=== PATIENT | female | born 1995 | race Two or more races ===

== ENCOUNTER 2022-04-16 11:05 | Inpatient (IN) | payer BC, OTHER ==
[~2022-04-16] VITALS: Ht 157.5 cm; Wt 61.7 kg
[2022-04-16] MEDS ORDERED: DERMOPLAST 60ML BOTTLE TOP PRN (11:30)
[2022-04-16] MEDS ORDERED: PHISODERM TOP SOLN 240ML BTL TOP PRN (11:30)
[2022-04-16] MEDS ORDERED: WITCH HAZEL-GLYCERIN PAD TOP PRN (11:30)
[2022-04-16] MEDS ORDERED: LACTATED RINGER'S 1,000 ML IV SCH (11:30)
[2022-04-16] MEDS ORDERED: PROMETHAZINE HCL 25 MG/ML 1ML IV PRN (11:30)
[2022-04-16] MEDS ORDERED: ACETAMINOPHEN 325 MG TAB PO PRN (11:45)
[2022-04-16] MEDS ORDERED: IBUPROFEN 600 MG TAB PO PRN (11:45)
[2022-04-16] MEDS ORDERED: ONDANSETRON ODT 4 MG TAB PO PRN (11:45)
[2022-04-16 12:47] LABS: Basophils # (auto) 0.1 10 ^3/uL (0-0.2); Basophils % (auto) 0.3 % (0.0-2.0); Eosinophils # (auto) 0 10 ^3/uL (0-0.8); Eosinophils % (auto) 0.2 % (0.0-7.0); Hematocrit 41.1 % (36.0-46.0); Hemoglobin 14.3 g/dL (12.2-16.2); Lymphocytes % (auto) 12.2 % (10.0-50.0); Mean Corpuscular Hemoglobin 31.2 pg (28.0-32.0); Mean Corpuscular Hgb Conc. 34.7 g/dL (32.0-36.0); Mean Corpuscular Volume 89.9 fL (80.0-100.0); Neutrophils # (auto) 13.3 10 ^3/uL (1.6-8.6); Neutrophils % (auto) 81.3 % (37.0-80.0); Nucleated Red Blood Cells % 0.3 %; Red Blood Cells 4.57 10^6/uL (4.0-5.20); Red Cell Distribution Width 12.7 % (11.8-14.3); White Blood Cell 16.4 10^3/uL (4.4-10.8)
[2022-04-16 13:09] LABS: Albumin 3.1 g/dL (3.4-5.0); Calcium 8.8 mg/dL (8.5-10.1); Potassium 3.6 mmol/L (3.5-5.1)
[2022-04-16 13:13] LABS: Bilirubin, Total 0.2 mg/dL (0.2-1.0); Total Protein 6.8 g/dL (6.4-8.2)
[2022-04-16 13:18] LABS: INR 0.92 (0.9-1.15); Partial Thromboplastin Time 27.1 sec (24.6-33.4)
[2022-04-16 15:00] VITALS: BP 133/78
[2022-04-16 15:13] LABS: Urine Bacteria NONE SEEN /hpf (None Seen); Urine Blood 3+ /uL (Negative); Urine WBC 2019 /hpf (0 - 5)
[2022-04-16 15:14] LABS: Alcohol, Urine < 3.0 mg/dL (0-10); Amphetamine Screen, Urine NEGATIVE (NEGATIVE); Barbiturate Scree,Urine NEGATIVE (NEGATIVE); Benzodiazephine Screen, Urine NEGATIVE (NEGATIVE); Cannabinoid Screen, Urine NEGATIVE (NEGATIVE); Cocaine Screen, Urine NEGATIVE (NEGATIVE); Opiate Scree,Urine NEGATIVE (NEGATIVE); Phencyclidine Screen, Urine NEGATIVE (NEGATIVE)
[2022-04-16 15:15] LABS: Urine Specific Gravity 1.015 (1.001-1.035)
[2022-04-16 18:47] VITALS: BP 110/71
[2022-04-16] MEDS ORDERED: PREN-96 PO (20:16)
[2022-04-17 00:43] VITALS: BP 145/89
[2022-04-17 03:10] VITALS: BP 135/86
[2022-04-17 06:50] VITALS: BP 116/79
[2022-04-17 11:03] VITALS: BP 125/87
[2022-04-17 11:39] VITALS: BP 125/87
[2022-04-18 07:06] LABS: RPR Non Reactive (Non Reactive)
== END 2022-04-17 11:39 | disposition home or self-care (01) | DRG 807 ==
LOC: LDRP 11:05
PROVIDERS: ADMIT Obstetrics & Gynecology; ATTEND Obstetrics & Gynecology
PROC: 10E0XZZ Delivery of Products of Conception, External Approach (ICD-10-PCS; principal; 2022-04-16)
DX: O03.9 Complete or unspecified spontaneous abortion without complication (principal); Z37.1 Single stillbirth; Z20.822 Contact with and (suspected) exposure to COVID-19; Z3A.21 21 weeks gestation of pregnancy
CPT/HCPCS: 36415; 59414; 80053; 80307; 81001; 85025; 85610; 85730; 86592; 86850; 86900; 86901; 87040; 87426; 94760; G0378

== ENCOUNTER 2024-08-26 10:18 | Observation (INO) | payer BC ==
[~2024-08-26 10:18] MED LIST: PREN-96 PO
--- NOTE | 2024-08-26 11:29 | DVHDS2 ---
Physician Discharge Progress N Final Diagnosis: ,short cxptl Operations or Procedures: Operations or Procedures nst, Commentary: Commentary seen by me Condition on Discharge: Good Disposition: Home Discharge Instructions: Diet: Regular Activity: Light activity Follow Up/Referral: Follow up in birthplace SundaySeptember 02 at 9:00 am for NST. Medications: procardia Follow Up Care: Specialist: 1w Discharge Statement: "Patient was advised to return to the ER or call 911 if any headaches, dizziness, shortness of breath, chest pain, abdominal pain, bleeding, fevers, or worsening of medical condition. Patient was counseled about treatment plan, medications, possible side effects, patientverbalized understanding. All questions were answered to the best of my ability. This discharge took greater then 30 minutes in planning, reviewing documentation, counseling the patient, and discussing with other team members." Visit Coding OBGYN Date of Service: Aug 26, 2024 Billing Provider: FRIDA VAIL DO SUPERVISING APPRAISER Common Visit Codes: 71258-[facility] INP/OBS CARE (HIGH) SUPERVISING APPRAISER Consultation Codes: 86261-[id number] CONSULT <40MIN SUPERVISING APPRAISER Procedure Codes: 27614-21- NON-STRESS TEST FRIDA VAIL DO Aug 26, 2024 11:29
== END 2024-08-26 11:10 | disposition home or self-care (01) ==
LOC: LDRP 10:18
PROVIDERS: ADMIT Obstetrics & Gynecology; ATTEND Obstetrics & Gynecology
DX: O26.872 Cervical shortening, second trimester (principal); Z98.890 Other specified postprocedural states; Z79.899 Other long term (current) drug therapy; Z3A.27 27 weeks gestation of pregnancy
CPT/HCPCS: 59025; 81002; 94760; G0378

== ENCOUNTER 2024-09-02 08:58 | Observation (INO) | payer BC ==
[~2024-09-02] VITALS: Ht 157.5 cm; Wt 63.5 kg
[2024-09-02] MEDS ORDERED: NIFE10CA52 PO (10:10)
[2024-09-02] MEDS ORDERED: PROG100S VA (10:10)
[2024-09-02] MEDS: TERBUTALINE SULFATE 1 MG/ML 1ML VIAL SC SCH (10:43)
[2024-09-02] MEDS: BETAMETHASONE ACET (30mg/5ml) 5ml Vial 6mg/ml IM ONE (10:43)
--- NOTE | 2024-09-02 11:36 | DVH ---
LIMITED OB ULTRASOUND > 14 WKS: HISTORY: short cervix/ PTL/ hx of pre term delivery TECHNIQUE: Multiple real-time grayscale images of the gravid uterus with duplex Doppler color flow an d M-mode spectral analysis. TRANSDUCER: Transabdominal COMPARISON: None FINDINGS/IMPRESSION: Cephalic presentation. Anterior placenta. heart rate 138 beats per minute CIRILO 17.7 cm Cervix measures 3.4 cm and is closed.
--- NOTE | 2024-09-02 13:49 | DVHDS2 ---
Physician Discharge Progress N Final Diagnosis: testing for short cervix Operations or Procedures: Operations or Procedures 28yo IUP@28.6wks, taking procardia 10mg PO q8hrs, denies UCs/VB, last CVL sono was in office 1 week ago cannot remember the number. VSS NST reactive TOCO: UCs presents, terb SQx1 and betamethasone IM first dose given, no UCs prior to D/C Rx sent for progesterone 200mg vag supp qHS and procardia 10mg PO q6hrs f/u in 1 day for second dose of betamethasone IM Dr. Alves consulted, agrees with POC Condition on Discharge: Stable Disposition: Home Discharge Instructions: Diet: Regular Activity: See Comment Activity comment: Pelvic Rest Follow Up/Referral: Please follow up tomorrow 09/03/24 @0900 for second dose of celestone, and/or return to [facility] or nearest hospital for any further concerns/complaints. Keep all scheduled appointments and continue all prescription medications exactly as prescribed. Medications: see med list Follow Up Care: Specialist: f/u in 1 day for second dose of betamethasone IM Discharge Statement: "Patient was advised to return to the ER or call 911 if any headaches, dizziness, shortness of breath, chest pain, abdominal pain, bleeding, fevers, or worsening of medical condition. Patient was counseled about treatment plan, medications, possible side effects, patientverbalized understanding. All questions were answered to the best of my ability. This discharge took greater then 30 minutes in planning, reviewing documentation, counseling the patient, and discussing with other team members." Visit Coding OBGYN Date of Service: Sep 02, 2024 Billing Provider: FREDERICK CHOU CNM CRANE RIGGER Common Visit Codes: 29169-VRLEVYT OBS CARE (HIGH) CRANE RIGGER Procedure Codes: 18835-37- NON-STRESS TEST FREDERICK CHOU CNM Sep 02, 2024 13:49
[2024-09-02] MEDS ORDERED: PROG100C23 PO (21:21)
== END 2024-09-02 11:36 | disposition home or self-care (01) ==
LOC: LDRP 08:58
PROVIDERS: ADMIT Obstetrics & Gynecology; ATTEND Obstetrics & Gynecology
DX: O26.872 Cervical shortening, second trimester (principal); O99.322 Drug use complicating pregnancy, second trimester; F12.90 Cannabis use, unspecified, uncomplicated; Z3A.28 28 weeks gestation of pregnancy; Z87.891 Personal history of nicotine dependence; Z79.899 Other long term (current) drug therapy
CPT/HCPCS: 76815; 81002; 94760; 96372; G0378; J0702; J3105

== ENCOUNTER 2024-09-03 06:06 | Observation (INO) | payer BC ==
[~2024-09-03] VITALS: Ht 157.5 cm; Wt 64.0 kg
[~2024-09-03 06:06] MED LIST changes: +NIFE10CA52 PO; +PROG100C23 PO
[2024-09-03] MEDS: BETAMETHASONE ACET (30mg/5ml) 5ml Vial 6mg/ml IM ONE (09:46)
--- NOTE | 2024-09-03 12:40 | DVHDS2 ---
Physician Discharge Progress N Final Diagnosis: ptl,short cx 29wks Operations or Procedures: Operations or Procedures nst,sono Condition on Discharge: Good Disposition: Home Discharge Instructions: Diet: Regular Activity: No Restrictions, As Tolerated Medications: na Follow Up Care: Specialist: 1w Discharge Statement: "Patient was advised to return to the ER or call 911 if any headaches, dizziness, shortness of breath, chest pain, abdominal pain, bleeding, fevers, or worsening of medical condition. Patient was counseled about treatment plan, medications, possible side effects, patientverbalized understanding. All questions were answered to the best of my ability. This discharge took greater then 30 minutes in planning, reviewing documentation, counseling the patient, and discussing with other team members." Visit Coding OBGYN Date of Service: Sep 03, 2024 Billing Provider: FRIDA VAIL DO CLIENT ACCOUNT MANAGER Common Visit Codes: [id number]-[id number] INP/OBS CARE (HIGH) CLIENT ACCOUNT MANAGER Procedure Codes: 31111-91- NON-STRESS TEST FRIDA VAIL DO Sep 03, 2024 12:40
== END 2024-09-03 10:06 | disposition home or self-care (01) ==
LOC: LDRP 09:03
PROVIDERS: ADMIT Obstetrics & Gynecology; ATTEND Obstetrics & Gynecology
DX: O60.03 Preterm labor without delivery, third trimester (principal); O26.873 Cervical shortening, third trimester; Z3A.29 29 weeks gestation of pregnancy; Z79.899 Other long term (current) drug therapy
CPT/HCPCS: 81002; 94760; 96372; G0378

== ENCOUNTER 2024-09-09 06:30 | Observation (INO) | payer BC ==
--- NOTE | 2024-09-09 15:44 | DVHDS2 ---
Physician Discharge Progress N Final Diagnosis: History of short cervix and prior labor Operations or Procedures: Operations or Procedures NST Condition on Discharge: Stable Disposition: Home Discharge Instructions: Diet: Regular Activity: Light activity Follow Up/Referral: as scheduled Medications: N/A Follow Up Care: Discharge Statement: "Patient was advised to return to the ER or call 911 if any headaches, dizziness, shortness of breath, chest pain, abdominal pain, bleeding, fevers, or worsening of medical condition. Patient was counseled about treatment plan, medications, possible side effects, patientverbalized understanding. All questions were answered to the best of my ability. This discharge took greater then 30 minutes in planning, reviewing documentation, counseling the patient, and discussing with other team members." Visit Coding OBGYN Date of Service: Sep 09, 2024 Billing Provider: JANY RUIZ DO HOT WIRE GLASS TUBE CUTTER Common Visit Codes: 68812-EUI/OBS SAME DATE (MOD) HOT WIRE GLASS TUBE CUTTER Procedure Codes: 64877-06- NON-STRESS TEST JANY RUIZ DO Sep 09, 2024 15:43
== END 2024-09-09 11:48 | disposition home or self-care (01) ==
LOC: LDRP 09:57
PROVIDERS: ADMIT Obstetrics & Gynecology; ATTEND Obstetrics & Gynecology
DX: O26.873 Cervical shortening, third trimester (principal); O60.03 Preterm labor without delivery, third trimester; Z98.890 Other specified postprocedural states; Z79.899 Other long term (current) drug therapy; Z3A.29 29 weeks gestation of pregnancy
CPT/HCPCS: 59025; 81002; 94760; G0378

== ENCOUNTER 2024-09-16 06:54 | Observation (INO) | payer BC ==
--- NOTE | 2024-09-16 09:02 | DVH ---
LIMITED OB ULTRASOUND > 14 WKS: HISTORY: SHORT CERVIX/ PTL TECHNIQUE: Multiple real-time grayscale images of the gravid uterus with duplex Doppler color flow an d M-mode spectral analysis. TRANSDUCER: Transabdominal COMPARISON: US OBSTERICAL LIMITED on DOS: 09/02/24 FINDINGS/IMPRESSION: heart rate 130 beats per minute CIRILO 14.4 cm Cervix is not visualized Cephalic Presentation Anterior Placenta without previa or abruption.
--- NOTE | 2024-09-16 09:21 | DVHDS2 ---
Physician Discharge Progress N Final Diagnosis: testing for PTL/short cervix Operations or Procedures: Operations or Procedures 28yo IUP@30.6wks, +FM, denies UCs/LOF/VB, taking progesterone/procardia/PNV OB sono done NST reactive VSS FKC/PTL precautions reviewed. Dr. Alves consulted, agrees with POC. Condition on Discharge: Stable Disposition: Home Discharge Instructions: Diet: Regular Activity: No Restrictions, As Tolerated Medications: see med list Follow Up Care: Specialist: f/u in 1 wk Discharge Statement: "Patient was advised to return to the ER or call 911 if any headaches, dizziness, shortness of breath, chest pain, abdominal pain, bleeding, fevers, or worsening of medical condition. Patient was counseled about treatment plan, medications, possible side effects, patientverbalized understanding. All questions were answered to the best of my ability. This discharge took greater then 30 minutes in planning, reviewing documentation, counseling the patient, and discussing with other team members." Visit Coding OBGYN Date of Service: Sep 16, 2024 Billing Provider: FREDERICK CHOU CNM BIODIESEL DIVISION MANAGER Common Visit Codes: 76214-[id number] OBS CARE (HIGH) BIODIESEL DIVISION MANAGER Procedure Codes: 10194-35- NON-STRESS TEST FREDERICK CHOU CNM Sep 16, 2024 09:21
== END 2024-09-16 09:40 | disposition home or self-care (01) ==
LOC: LDRP 08:00
PROVIDERS: ADMIT Obstetrics & Gynecology; ATTEND Obstetrics & Gynecology
DX: O26.873 Cervical shortening, third trimester (principal); Z98.890 Other specified postprocedural states; Z79.899 Other long term (current) drug therapy; Z3A.30 30 weeks gestation of pregnancy
CPT/HCPCS: 76815; 81002; G0378

== ENCOUNTER 2024-09-23 07:13 | Observation (INO) | payer BC ==
[~2024-09-23] VITALS: Ht 157.5 cm; Wt 54.4 kg
--- NOTE | 2024-09-23 08:52 | DVH ---
LIMITED OB ULTRASOUND > 14 WKS: HISTORY: short cervix TECHNIQUE: Multiple real-time grayscale images of the gravid uterus with duplex Doppler color flow an d M-mode spectral analysis. FINDINGS: Cephalic presentation Current CIRILO: 17.5 HR: 137 BPM IMPRESSION: Cephalic presentation Current CIRILO: 17.5 HR: 137 BPM
[2024-09-23] MEDS: NIFEdipine 10 MG CAP PO ONE (09:03)
[2024-09-23] MEDS: TERBUTALINE SULFATE 1 MG/ML 1ML VIAL SC SCH (09:04)
--- NOTE | 2024-09-23 13:40 | DVHDS2 ---
Physician Discharge Progress N Final Diagnosis: testing for short cervix/PTL Operations or Procedures: Operations or Procedures 28yo IUP@31.6wks, taking procardia 10mg q6hrs, denies UCs VSS NST reactive TOCO: initially regular UCs after treatment none Terbutaline SQ x1 given FKC/PTL precautions reviewed Continue pelvic rest Take procardia 10mg q4hrs now until [address] Alves consulted, agrees with POC Other Interventions Other Interventions [place] [address] Ph: [phone] DIAGNOSTIC IMAGING Diagnostic Imaging Report : [id number] Signed with Samuel PATIENT: EVAN BARNES ACCT: [id number] UNIT: [id number] : 1995 LOC: [facility] ROOM / BED: TRIAGE1 / A AGE / SEX: 28 / F ADM STATUS: ADM IN SERVICE 0 ORDERING PHYSICIAN: FRIDA ALVES DO PROCEDURE(s): OBLTD - OBSTERICAL LIMITED REASON: short cervix ORDER NUMBER(s): [id number], ACCESSION NUMBER(s): [id number] ADDENDUM ADDENDUM # 1 Cervical length is short measruing 2.7cm ORIGINAL REPORT LIMITED OB ULTRASOUND > 14 WKS: HISTORY: short cervix TECHNIQUE: Multiple real-time grayscale images of the gravid uterus with duplex Doppler color flow and M-mode spectral analysis. FINDINGS: Cephalic presentation Current CIRILO: 17.5 HR: 137 BPM IMPRESSION: Cephalic presentation Current CIRILO: 17.5 HR: 137 BPM ATED BY: KHRIS QUINTANA MD DICTATED DATE/TIME: 09/23/24858 SIGNED BY: KHRIS QUINTANA MD SIGNED DATE/TIME: 09/23/24858 CC: ADDENDUM ADDENDUM # 1 Cervical length is short measruing 2.7cm ORIGINAL REPORT LIMITED OB ULTRASOUND > 14 WKS: HISTORY: short cervix TECHNIQUE: Multiple real-time grayscale images of the gravid uterus with duplex Doppler color flow and M-mode spectral analysis. FINDINGS: Cephalic presentation Current CIRILO: 17.5 HR: 137 BPM IMPRESSION: Cephalic presentation Current CIRILO: 17.5 HR: 137 BPM ATED BY: KHRIS QUINTANA MD DICTATED DATE/TIME: 09/23/24858 SIGNED BY: KHRIS QUINTANA MD SIGNED DATE/TIME: 09/23/24858 CC: LIMITED OB ULTRASOUND > 14 WKS: HISTORY: short cervix TECHNIQUE: Multiple real-time grayscale images of the gravid uterus with duplex Doppler color flow and M-mode spectral analysis. FINDINGS: Cephalic presentation Current CIRILO: 17.5 HR: 137 BPM IMPRESSION: Cephalic presentation Current CIRILO: 17.5 HR: 137 BPM ATED BY: KHRIS QUINTANA MD DICTATED DATE/TIME: 09/23/24849 SIGNED BY: KHRIS QUINTANA MD SIGNED DATE/TIME: 09/23/24849 CC: Condition on Discharge: Stable Disposition: Home Discharge Instructions: Diet: Regular Activity: See Comment Activity comment: pelvic rest Medications: see med list Follow Up Care: Specialist: f/u in 1 wk Discharge Statement: "Patient was advised to return to the ER or call 911 if any headaches, dizziness, shortness of breath, chest pain, abdominal pain, bleeding, fevers, or worsening of medical condition. Patient was counseled about treatment plan, medications, possible side effects, patientverbalized understanding. All questions were answered to the best of my ability. This discharge took greater then 30 minutes in planning, reviewing documentation, counseling the patient, and discussing with other team members." Visit Coding OBGYN Date of Service: Sep 23, 2024 Billing Provider: FREDERICK CHOU CNM JOB PUTTER UP AND TICKET PREPARER Common Visit Codes: 87733-[id number] OBS CARE (HIGH) JOB PUTTER UP AND TICKET PREPARER Procedure Codes: 58664-87- NON-STRESS TEST FREDERICK CHOU CNM Sep 23, 2024 13:40
== END 2024-09-23 10:08 | disposition home or self-care (01) ==
LOC: LDRP 07:57
PROVIDERS: ADMIT Obstetrics & Gynecology; ATTEND Obstetrics & Gynecology
DX: O26.873 Cervical shortening, third trimester (principal); O60.03 Preterm labor without delivery, third trimester; Z98.890 Other specified postprocedural states; Z79.899 Other long term (current) drug therapy; Z3A.31 31 weeks gestation of pregnancy
CPT/HCPCS: 59025; 76815; 81002; 94760; 96372; G0378; J3105

== ENCOUNTER 2024-09-30 07:56 | Observation (INO) | payer BC ==
[~2024-09-30] VITALS: Ht 157.5 cm; Wt 51.3 kg
--- NOTE | 2024-09-30 08:44 | DVH ---
BIOPHYSICAL PROFILE HISTORY: PTL/short cervix Comparison Study: None TECHNIQUE: Multiple real-time grayscale sonographic images through the gravid uterus of the fetus wi th duplex Doppler color flow and M-mode spectral analysis FINDINGS: BIOPHYSICAL PROFILE: breathing score: 2 movement score: 2 tone score: 2 Quantitative CIRILO score: 2 (CIRILO: 16.5 Cm.) Total score: 8 The cervix is shortened and demonstrates funneling measuring 2.6 cm. Single live fetus in cephalic presentation. heart rate 138 beats per minute. Anterior placenta without previa or abruption IMPRESSION: Biophysical profile score: 8 The cervix is shortened and demonstrates funneling measuring 2.6 cm.
--- NOTE | 2024-09-30 09:33 | DVHDS2 ---
Physician Discharge Progress N Final Diagnosis: ptl ,short cx 32 wks Operations or Procedures: Operations or Procedures rec 2 celestone Consultations: Consultations nstcandidowendy Condition on Discharge: Good Disposition: Home Discharge Instructions: Diet: Regular Activity: Light activity Medications: na Follow Up Care: Specialist: 1w Discharge Statement: "Patient was advised to return to the ER or call 911 if any headaches, dizziness, shortness of breath, chest pain, abdominal pain, bleeding, fevers, or worsening of medical condition. Patient was counseled about treatment plan, medications, possible side effects, patientverbalized understanding. All questions were answered to the best of my ability. This discharge took greater then 30 minutes in planning, reviewing documentation, counseling the patient, and discussing with other team members." Visit Coding OBGYN Date of Service: Sep 30, 2024 Billing Provider: FRIDA VAIL DO SUSTAINABILITY PURCHASING AGENT Common Visit Codes: 62030-ZEUYQUJ INP/OBS CARE (HIGH) SUSTAINABILITY PURCHASING AGENT Procedure Codes: 71492-23- NON-STRESS TEST FRIDA VAIL DO Sep 30, 2024 09:33
== END 2024-09-30 09:14 | disposition home or self-care (01) ==
LOC: LDRP 07:56 → UNDOADMOB 07:56 → LDRP 08:01
PROVIDERS: ADMIT Obstetrics & Gynecology; ATTEND Obstetrics & Gynecology
DX: O60.03 Preterm labor without delivery, third trimester (principal); O26.873 Cervical shortening, third trimester; Z3A.32 32 weeks gestation of pregnancy; Z98.890 Other specified postprocedural states; Z79.899 Other long term (current) drug therapy
CPT/HCPCS: 76818; 81002; 94760; G0378; 76819

== ENCOUNTER 2024-10-06 07:52 | Observation (INO) | payer BC ==
[~2024-10-06] VITALS: Ht 157.5 cm; Wt 68.0 kg
[2024-10-06] MEDS ORDERED: TERBUTALINE SULFATE 1 MG/ML 1ML VIAL SC SCH (09:00)
[2024-10-06] MEDS ORDERED: TERBUTALINE SULFATE 1 MG/ML 1ML VIAL SC ONE (09:00)
--- NOTE | 2024-10-06 09:12 | DVH ---
BIOPHYSICAL PROFILE HISTORY: short cervix, PTL TECHNIQUE: Multiple transabdominal real-time grayscale sonographic images through the gravid uterus of the fetus with duplex Doppler color flow and M-mode spectral analysis FINDINGS: BIOPHYSICAL PROFILE: breathing score: 2 movement score: 2 tone score: 2 Quantitative CIRILO score: 2 (CIRILO: 13.2 Cm.) Total score: 8 The cervix is closed 1.8 cm. Single live fetus in cephalic presentation. heart rate 119 beats per minute. Grade III anterior placenta without previa or abruption IMPRESSION: Biophysical profile score: 8/8
--- NOTE | 2024-10-06 11:29 | DVHDS2 ---
Physician Discharge Progress N Final Diagnosis: ptl Operations or Procedures: Operations or Procedures nst,sono Condition on Discharge: Good Disposition: Home Discharge Instructions: Diet: Regular Activity: Bed rest Follow Up/Referral: Follow up Sunday10/13/24 @ 8:00 am for NST/BPP in [facility]place Medications: na Follow Up Care: Specialist: 1w Discharge Statement: "Patient was advised to return to the ER or call 911 if any headaches, dizziness, shortness of breath, chest pain, abdominal pain, bleeding, fevers, or worsening of medical condition. Patient was counseled about treatment plan, medications, possible side effects, patientverbalized understanding. All questions were answered to the best of my ability. This discharge took greater then 30 minutes in planning, reviewing documentation, counseling the patient, and discussing with other team members." Visit Coding OBGYN Date of Service: Oct 06, 2024 Billing Provider: FRIDA VAIL DO SALES ENABLEMENT ANALYST Common Visit Codes: 66153-VMRJKBG OBS CARE (HIGH) SALES ENABLEMENT ANALYST Procedure Codes: 17164-06- NON-STRESS TEST FRIDA VAIL DO Oct 06, 2024 11:29
== END 2024-10-06 09:30 | disposition home or self-care (01) ==
LOC: LDRP 07:52
PROVIDERS: ADMIT Obstetrics & Gynecology; ATTEND Obstetrics & Gynecology
DX: O60.03 Preterm labor without delivery, third trimester (principal); Z98.890 Other specified postprocedural states; Z79.899 Other long term (current) drug therapy; Z3A.33 33 weeks gestation of pregnancy
CPT/HCPCS: 76817; 76818; 81002; 94760; G0378; J3105; 76819

== ENCOUNTER 2024-10-13 06:34 | Observation (INO) | payer BC ==
--- NOTE | 2024-10-13 09:02 | DVH ---
CLINICAL HISTORY: labor. Short cervix. COMPARISON: US BIOPHYSICAL PROFILE on DOS: 10/06/24, US BIOPHYSICAL PROFILE on DOS: 09/30/24 TECHNIQUE: biophysical profile was performed. Transabdominal sonographic images of the fetus we re obtained. Transvaginal imaging was performed to evaluate the cervix. FINDINGS: The fetus is in cephalic position. heart rate measures 122 BPM. Amniotic fluid index measures 15.3 cm. The placenta is anterior in position, with no evidence of previa or abruption. Cerv ix appears closed. Cervical length was measured as 2.3 cm. BPP profile is an overall score of 8/8, with 2/2 points for breathing, with at least one episode of breathing over a 30 second duration during a 30 minute observation, 2/2 points for m ovements, with 3 or more discrete body or limb movements, 2/2 points for tone, with one or more episodes of extremity extension with return to flexion, or opening and closing of hand, and 2/ 2 points for amniotic fluid, with at least 1 pocket of amniotic fluid that measures 2 cm in 2 perpend icular planes. IMPRESSION: 1. BPP score of 8/8. 2. Cervical length measured as 2.3 cm. Cervix appears closed.
--- NOTE | 2024-10-13 23:04 | DVHDS2 ---
Discharge Summary Date of Admission Oct 13, 2024 at 07:57 Date of Discharge: Oct 13, 2024 Admitting Diagnosis PTL 34 wks Brief Hx & Hospital Course: NST US Condition at Discharge: Good Final Diagnosis/Problems List same Discharge Disposition: Home Discharge Instruct/Medications Diet: Regular Activity: Light activity Follow Up/Referral: as scheduled kick counts labor precautions Discharge Statement: "Patient was advised to return to the ER or call 911 if any headaches, dizziness , shortness of breath, chest pain, abdominal pain, bleeding, fevers, or worsening of medical condition. Patient was counseled about treatment plan, medications, possible side effects, patientverbalized understanding. All questions were answered to the best of my ability. This discharge took greater then 30 minutes in planning, reviewing documentation, counseling the patient, and discussing with other team members." ASSESSMENT ASSESSMENT Assessment Visit Coding OBGYN Date of Service: Oct 13, 2024 Billing Provider: DELPHINE HERNDON DO FINAL CLEANER Common Visit Codes: 47418-DMP/OBS SAME DATE (LOW), 97690-KZS/OBS SAME DATE (MOD), 77491-EIG/OBS SAME DATE (HIGH) FINAL CLEANER Procedure Codes: 33895-88- NON-STRESS TEST DELPHINE HERNDON DO Oct 13, 2024 23:04
== END 2024-10-13 09:15 | disposition home or self-care (01) ==
LOC: LDRP 07:57
PROVIDERS: ADMIT Obstetrics & Gynecology; ATTEND Obstetrics & Gynecology
DX: O60.03 Preterm labor without delivery, third trimester (principal); Z98.890 Other specified postprocedural states; Z79.899 Other long term (current) drug therapy; Z3A.34 34 weeks gestation of pregnancy
CPT/HCPCS: 76818; 81002; G0378; 76819

== ENCOUNTER 2024-10-18 16:35 | Inpatient (IN) | payer BC ==
[2024-10-17 18:45] VITALS: BP 153/90; PULSE 81; RESP 16; O2SAT 98
[2024-10-18] VITALS (7 sets, daily range): BP systolic 121–143; BP diastolic 71–89; PULSE 71–83; RESP 15–16; TEMP 98.4–98.9; O2SAT 96–98
[~2024-10-18] VITALS: Ht 157.5 cm; Wt 68.5 kg
[2024-10-18] MEDS ORDERED: LIDOCAINE 2%HCL (LOCAL ANESTH.) INJ 20ML MDV ONE (17:06)
[2024-10-18] MEDS ORDERED: LIDOCAINE 2%HCL (LOCAL ANESTH.) INJ 20ML MDV IJ PRN (17:15)
[2024-10-18] MEDS ORDERED: LACTATED RINGER'S 1,000 ML IV SCH (17:15)
[2024-10-18 17:49] LABS: Urine Bacteria None Seen /hpf (None Seen)
[2024-10-18 17:56] LABS: Basophils # (auto) 0.1 10 ^3/uL (0-0.2); Basophils % (auto) 0.4 % (0.0-2.0); Eosinophils # (auto) 0 10 ^3/uL (0-0.8); Eosinophils % (auto) 0.4 % (0.0-7.0); Hematocrit 40.1 % (36.0-46.0); Hemoglobin 13.9 g/dL (12.2-16.2); Lymphocytes # (auto) 1.5 10 ^3/uL (0.4-5.4); Lymphocytes % (auto) 11.9 % (10.0-50.0); Mean Corpuscular Hemoglobin 32.3 pg (28.0-32.0); Mean Corpuscular Hgb Conc. 34.8 g/dL (32.0-36.0); Mean Corpuscular Volume 92.8 fL (80.0-100.0); Monocytes # (auto) 0.6 10 ^3/uL (0-1.3); Monocytes % (auto) 4.6 % (0.0-12.0); Neutrophils # (auto) 10.4 10 ^3/uL (1.6-8.6); Neutrophils % (auto) 82.7 % (37.0-80.0); Nucleated Red Blood Cells % 0.1 %; Platelet Count (auto) 201 10^3/uL (140-450); Red Blood Cells 4.31 10^6/uL (4.0-5.20); Red Cell Distribution Width 13.9 % (11.8-14.3); White Blood Cell 12.5 10^3/uL (4.4-10.8)
[2024-10-18 18:00] LABS: Urine Blood Negative /uL (Negative); Urine Clarity Clear (Clear); Urine Color Yellow (Yellow); Urine Mucus FEW (None Seen); Urine Protein, UAD TRACE (Negative); Urine Specific Gravity 1.025 (1.001-1.035); Urine Squamous Epithelial Cell FEW /hpf (<5); Urine Urobilinogen Normal (Negative); Urine WBC 1 /HPF (0-5)
--- NOTE | 2024-10-18 18:03 | DVHHP2 ---
OB CC & HPI Patient Identification: : 2 Para: 1 EDC: Nov 19, 2024 EGA: 35 08/22 Chief Complaints: Reason for admission: active labor, other Indication for induction: history of rapid labor Admission Nurse Assessment Rev: Yes History of Present Complaints Patient has history of precipitous labor delivered a nonviable 20 weeker in the toilet at home on her 1st boy. She has been monitored closely for labor. Her GBS status unknown: On my arrival the ER physician had delivered placenta and on my examination patient had a bilateral first- degree anterior and posterior first-degree posterior vaginal skin mucosal lacerations which were repaired with 2-0 chromic and local lidocaine. Uterus was firm EBL estimated by what appearance to be 350 cc: Weight 4 lb 13 oz Apgars 8 9 neonatology in the room on my arrival just after delivery. 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 Past Medical History Cardiac: No pertinent Hx Pulmonary: No pertinent Hx Central Nervous System: No pertinent Hx GI: No pertinent Hx Hemotology/Oncology: No pertinent Hx Hepatobiliary: No pertinent Hx Psychiatric: No pertinent Hx Musculoskeletal: No pertinent Hx Rheumotologic: No pertinent Hx Infectious Disease: No peritnent Hx ENT: No pertinent Hx Renal/: No pertinent Hx Endocrine: No pertinent Hx Dermatology: No pertinent Hx Past Surgical History: No pertinent Hx OB History OB History Care: Good Care Ultrasounds: Normal mid trimester US (short cx) Obstetrical Complications: Other (pre term labor) Allergies: Coded Allergies: NO KNOWN ALLERGIES (Unverified , 04/16/22) Home Meds Active Scripts Progesterone Micronized (PROGESTERONE) 100 Mg Cap, 100 MG PO BID for 30 Days, #60 CAP 3 Refills Prov:FREDERICK CHOU CNM 09/02/24 Nifedipine (PROCARDIA CAPSULE) 10 Mg Cp, 10 MG PO Q6HR for 30 Days, #120 CAP 1 Refill take until [address] Alves Prov:FREDERICK CHOU CNM 09/02/24 Reported Medications Vit W/ Ferrous Fumara ( One Daily) Daily Tab, 1 TAB PO DAILY, #90 TAB 3 Refills 04/16/22 Current Medications Current Medications Medications (Trade) Dose Ordered Sig/Elliott Route PRN Reason Start Time Stop Time Status Last Admin Lactated Ringer's 1,000 ml @ 125 mls/hr Q8H IV 10/18/24 17:15 Witch Jenny (Tucks) 1 pad PRN PRN TOP PERINEAL AREA DISCOMFORT 10/18/24 17:15 Sodium Lauryl Sulfate (Phisoderm) 240 ml PRN PRN TOP PERINEAL AREA DISCOMFORT 10/18/24 17:15 Benzocaine (Dermoplast) 1 applic PRN PRN TOP PERINEAL AREA DISCOMFORT 10/18/24 17:15 Lidocaine HCl (Xylocaine) 20 ml ONCE PRN IJ PERINEAL AREA DISCOMFORT 10/18/24 17:15 Family & Social History Family/Social History Blood Type: O+ Rubella: immune RPR/VDRL: Negative GBS Status: Unknown (cultures will be performed on mother just in case developes infection / fever. ) HBsAG: Negative Review of Systems Constitutional: No symptom reported Ears, Nose, & Throat: No symptom reported Eyes: No symptom reported Pulmonary/Respiratory: No symptom reported Cardiovascular: No symptom reported Gastrointestinal: No symptom reported Genitourinary: No symptom reported Musculoskeletal: No symptom reported Skin: No symptom reported Psychiatric: No symptom reported Endocrine: No symptom reported Hemotologic/Lymphatic: No symptom reported OB Admission Exam Physical Exam HEENT: TMs Normal, Fontanelles Normal, Nasal Mucosa Normal, Eyes non-injected, Oropharynx Normal, PERRLA, Moist Membranes, EOMI Heart: Rhythm Normal Lungs: Clear Abdomen: Non tender Extremities: Normal Reflexes: Normal Cervical Dilatation: 10cm (on arrival) Effacement: 100% Station: +2 Membranes: Intact Amniotic Fluid: Clear Heart Rate: 130's Accelerations: Accelerations Present Decelerations: No Decelerations Short Term Variability: Present Tankroom Worker Variability: Average (6-25) Contractions on Admission: < 5 Minutes Apart Intensity: Firm OB Plan Plan Admitting Diagnosis: Precipitous delivery 35 week labor; patient has history of occasional cannabinoid use during for her workup folder Plan: Expectant Management (GBS cultures performed) DELPHINE HERNDON DO October 18, 2024 18:03
--- NOTE | 2024-10-18 18:09 | LDN2 ---
Labor and Delivery Note Date 10/18/24 Age 28 2 Para 1 AB 1 at 20 weeks EDC 11/19/2024 EGA 35 08/22 pre signing all triage she was after 10 Diagnosis 35 active labor 10cm on arrival Vaginal Delivery: VTX Vacuum Assisted: No Placenta: Spontaneous Sex: Male Weight 4lbs 13 ozs Apgars 8/9 Nuchal Cord Transected: No Amniotic Fluid: Clear Anesthesia none Episiotomy: No Extension: Yes (1st degree anterior and posterior vaginal) Repaired with 2-0 chromic EBL 350cc Labs Blood Bank 04/16/22 12:13: Blood Type O POSITIVE Complications none Conditions stable guarded Visit Coding OBGYN Date of Service: October 18, 2024 Billing Provider: DELPHINE HERNDON DO VET TECH Common Visit Codes: 66974-OEJ/OBS SAME DATE (MOD), 10621-LLF/OBS SAME DATE (HIGH), 50258-FST/OBS DISCH DAY <30MIN VET TECH Consultation Codes: 61304-L/U INPATIENT CONSULT (HIGH) VET TECH Procedure Codes: 98164-TGC DEL INCLUDING DELPHINE HERNDON DO October 18, 2024 18:09
[2024-10-18 18:11] LABS: INR 0.91 (0.9-1.15); Partial Thromboplastin Time 24.8 SEC (24.5-34.5); Prothrombin Time 9.7 sec (9.3-11.8)
[2024-10-18 18:12] LABS: Amphetamine Screen, Urine Neg (NEGATIVE); Barbiturate Scree,Urine Neg (NEGATIVE); Benzodiazephine Screen, Urine Neg (NEGATIVE); Cannabinoid Screen, Urine Neg (NEGATIVE); Cocaine Screen, Urine Neg (NEGATIVE); Opiate Scree,Urine Neg (NEGATIVE); Phencyclidine Screen, Urine Neg (NEGATIVE)
[2024-10-18 18:13] LABS: Alanine Aminotransferase 18 U/L (7-40); Albumin 3.9 g/dL (3.2-4.8); Anion Gap 12 (5-15); BUN/Creatinine Ratio 19.4 (10.0-20.0); Blood Urea Nitrogen 12 mg/dL (9-23); Calcium 9.6 mg/dL (8.7-10.4); Sodium 139 mmol/L (136-145); Total Protein 6.2 g/dL (5.7-8.2)
[2024-10-18 18:15] LABS: Alkaline Phosphatase 135 U/L (46-116); Aspartate Aminotransferase 25 U/L (13-40); Bilirubin, Total 0.2 mg/dL (0.2-1.0); Carbon Dioxide 19 mmol/L (20-31); Chloride 108 mmol/L (98-107); Glucose 124 mg/dL (74-106); Potassium 3.5 mmol/L (3.5-5.1)
[2024-10-18 19:40] LABS: Protein, Urine 41.8 mg/dL (1-14)
[2024-10-18 19:43] LABS: Creatinine, Urine 122.94 mg/dL (30.0-125.0); Urine Protein/Creatinine Ratio 0.34
[2024-10-19] MEDS ORDERED: ONDANSETRON ODT 4 MG TAB PO PRN (01:45)
[2024-10-19] MEDS ORDERED: ACETAMINOPHEN 325 MG TAB PO PRN (01:45)
[2024-10-19] MEDS ORDERED: IBUPROFEN 800 MG TAB PO PRN (02:00)
[2024-10-19] MEDS: WITCH HAZEL-GLYCERIN PAD TOP PRN (02:01)
[2024-10-19] MEDS: DERMOPLAST 60ML BOTTLE TOP PRN (02:01)
[2024-10-19] MEDS: PHISODERM TOP SOLN 240ML BTL TOP PRN (02:01)
[2024-10-19 03:00] VITALS: BP 129/83; PULSE 72; RESP 16; TEMP 98.5; O2SAT 98
[2024-10-19] MEDS ORDERED: IBUPROFEN 800 MG TAB PO SCH (06:00)
[2024-10-19 06:45] VITALS: BP 136/87; PULSE 61; RESP 16; TEMP 99; O2SAT 98
--- NOTE | 2024-10-19 09:23 | DVHPN2 ---
Chief Complaints Patient reports: No new complaints Nursing reports: No new complaints, No abdominal pain, No chest pain, No dizziness, No cough (With this 1 abdomen is D.O. my will see if it works well let you remove her IC but it is vaginal rejuvenation laser 1 we have the spot slide put it in his 3 treatments and we run it maybe 5 minutes less like to 3 you come in light monthly but leaning away lot of women with mild to moderate incontinence of the getting improvement without being in all so I would that is foot were done with the pins she rejected that is rejected sutures and the last thing I am going to Dysport masses but she is she is going to try alleged dizzy taken down for weekend get a spot treatment we are were in disposed to be on pelvic rest no known month 3 spots likely is supposed to be on pelvic rest for 2 weeks but I think no known these around the good prior get your tell log girlfriend's I would tell HOME THEATER EXPERIENCE EXPERT there is Dr. Reese he is wide so I could tell the influence they do everything Botox I do a lot of pelvic ideal little bit of the juvenile station gas on the) Objective Vitals Vital Signs Date Time Temp Pulse Resp B/P (MAP) Pulse Ox O2 Delivery O2 Flow Rate FiO2 10/19/24 06:48 Room Air 10/19/24 06:45 99.0 61 16 136/87 (103) 98 99.0 Medications Current Medications Medications (Trade) Dose Ordered Sig/Elliott Route PRN Reason Start Time Stop Time Status Last Admin Acetaminophen (Tylenol Tablet) 650 mg Q4HP PRN PO MILD PAIN (1-3 PAIN SCALE) 10/19/24 01:45 Benzocaine (Dermoplast) 1 applic PRN PRN TOP PERINEAL AREA DISCOMFORT 10/18/24 17:15 10/19/24 02:01 Docusate Sodium (Colace Capsule) 200 mg HS PO 10/19/24 22:00 Ibuprofen (Motrin Tablet) 800 mg Q6HR PRN PO SEVERE (BREAKTHROUGH) PAIN 10/19/24 02:00 Lactated Ringer's 1,000 ml @ 125 mls/hr Q8H IV 10/18/24 17:15 Lidocaine HCl (Xylocaine) 20 ml ONCE PRN IJ PERINEAL AREA DISCOMFORT 10/18/24 17:15 Ondansetron HCl (Zofran Po) 4 mg Q4HPRN PRN PO NAUSEA / VOMITING 10/19/24 01:45 Sodium Lauryl Sulfate (Phisoderm) 240 ml PRN PRN TOP PERINEAL AREA DISCOMFORT 10/18/24 17:15 10/19/24 02:01 Aure Alvarado (Rudi) 1 pad PRN PRN TOP PERINEAL AREA DISCOMFORT 10/18/24 17:15 10/19/24 02:01 Studies Laboratory Tests 10/18/24 17:29 Test 10/18/24 17:29 Range/Units Serum Glucose 124 H 74-106 mg/dL DELPHINE HERNDON DO October 19, 2024 09:23
[2024-10-19 10:56] VITALS: BP 136/73; PULSE 71; RESP 16; TEMP 99; O2SAT 97
[2024-10-19 15:00] VITALS: BP 124/76; PULSE 62; RESP 16; TEMP 98.7; O2SAT 98
[2024-10-19 19:00] VITALS: BP 130/81; PULSE 68; RESP 18; TEMP 99; O2SAT 97
[2024-10-19] MEDS ORDERED: DOCUSATE SOD 100 MG CAP PO SCH (22:00)
[2024-10-19 23:00] VITALS: BP 105/75; PULSE 60; RESP 16; TEMP 98.4; O2SAT 97
--- NOTE | 2024-10-20 05:59 | DVHPN2 ---
Chief Complaints Patient reports: No new complaints Nursing reports: No new complaints, No abdominal pain, No chest pain, No dizziness, No cough (With this 1 abdomen is D.O. my will see if it works well let you remove her IC but it is vaginal rejuvenation laser 1 we have the spot slide put it in his 3 treatments and we run it maybe 5 minutes less like to 3 you come in light monthly but leaning away lot of women with mild to moderate incontinence of the getting improvement without being in all so I would that is foot were done with the pins she rejected that is rejected sutures and the last thing I am going to Dysport masses but she is she is going to try alleged dizzy taken down for weekend get a spot treatment we are were in disposed to be on pelvic rest no known month 3 spots likely is supposed to be on pelvic rest for 2 weeks but I think no known these around the good prior get your tell log girlfriend's I would tell TOOL DESIGNER APPRENTICE there is Dr. Reese he is wide so I could tell the influence they do everything Botox I do a lot of pelvic ideal little bit of the juvenile station gas on the) Objective Vitals Vital Signs Date Time Temp Pulse Resp B/P (MAP) Pulse Ox O2 Delivery O2 Flow Rate FiO2 10/19/24 23:00 98.4 60 16 105/75 (85) 97 98.4 10/19/24 19:00 Room Air Medications Current Medications Medications (Trade) Dose Ordered Sig/Elliott Route PRN Reason Start Time Stop Time Status Last Admin Docusate Sodium (Colace Capsule) 200 mg HS PO 10/19/24 22:00 General: Normal Lungs: Normal Cardiovascular: Normal Abdominal: Normal (uterus 12 week size firm) Musculoskeletal: Normal Extremities: Normal Skin: Normal Studies Laboratory Tests 10/18/24 17:29 Test 10/18/24 17:29 Range/Units Serum Glucose 124 H 74-106 mg/dL Ass/Plan Assessment PPD # 2 stable improved Plan See DC summary See DC orders DELPHINE HERNDON DO October 20, 2024 05:59
--- NOTE | 2024-10-20 06:02 | DVHDS2 ---
Discharge Summary Date of Admission October 18, 2024 at 17:10 Date of Discharge: October 20, 2024 Admitting Diagnosis Labor pre term 35+ wks Labs/Diagnostic Data: Laboratory Results Test 10/18/24 17:29 10/18/24 16:00 White Blood Count 12.5 10^3/uL (4.4-10.8) Red Blood Count 4.31 10^6/uL (4.0-5.20) Hemoglobin 13.9 g/dL (12.2-16.2) Hematocrit 40.1 % (36.0-46.0) Mean Corpuscular Volume 92.8 fL (80.0-100.0) Mean Corpuscular Hemoglobin 32.3 pg (28.0-32.0) Mean Corpuscular Hemoglobin Concent 34.8 g/dL (32.0-36.0) Red Cell Distribution Width 13.9 % (11.8-14.3) Platelet Count 201 10^3/uL (140-450) Mean Platelet Volume 9.1 fL (6.9-10.8) Neutrophils (%) (Auto) 82.7 % (37.0-80.0) Lymphocytes (%) (Auto) 11.9 % (10.0-50.0) Monocytes (%) (Auto) 4.6 % (0.0-12.0) Eosinophils (%) (Auto) 0.4 % (0.0-7.0) Basophils (%) (Auto) 0.4 % (0.0-2.0) Neutrophils # (Auto) 10.4 10 ^3/uL (1.6-8.6) Lymphocytes # (Auto) 1.5 10 ^3/uL (0.4-5.4) Monocytes # (Auto) 0.6 10 ^3/uL (0-1.3) Eosinophils # (Auto) 0 10 ^3/uL (0-0.8) Basophils # (Auto) 0.1 10 ^3/uL (0-0.2) Nucleated Red Blood Cells 0.1 % Prothrombin Time 9.7 sec (9.3-11.8) Prothrombin Time INR 0.91 (0.9-1.15) Activated Partial Thromboplast Time 24.8 SEC (24.5-34.5) Sodium Level 139 mmol/L (136-145) Potassium Level 3.5 mmol/L (3.5-5.1) Chloride Level 108 mmol/L (98-107) Carbon Dioxide Level 19 mmol/L (20-31) Anion Gap 12 (5-15) Blood Urea Nitrogen 12 mg/dL (9-23) Creatinine 0.62 mg/dL (0.550-1.02) Glomerular Filtration Rate Calc 124 mL/min (>90) BUN/Creatinine Ratio 19.4 (10.0-20.0) Serum Glucose 124 mg/dL (74-106) Uric Acid 4.8 mg/dL (3.1-7.8) Calcium Level 9.6 mg/dL (8.7-10.4) Total Bilirubin 0.2 mg/dL (0.2-1.0) Aspartate Amino Transferase (AST) 25 U/L (13-40) Alanine Aminotransferase (ALT) 18 U/L (7-40) Alkaline Phosphatase 135 U/L (46-116) Total Protein 6.2 g/dL (5.7-8.2) Albumin 3.9 g/dL (3.2-4.8) Treponema pallidum Antibody Non-reactive (Negative) Hepatitis C Antibody Negative (Negative) Urine Color Yellow (Yellow) Urine Clarity Clear (Clear) Urine pH 6.0 (5.0-9.0) Urine Specific [place] 1.025 (1.001-1.035) Urine Protein Trace (Negative) Urine Ketones Negative (Negative) Urine Blood Negative /uL (Negative) Urine Nitrite Negative (Negative) Urine Bilirubin Negative (Negative) Urine Urobilinogen Normal mg/dL (Negative) Urine Leukocyte Esterase Negative /uL (Negative) Urine RBC 37 /hpf (0 - 4) Urine Microscopic WBC 1 /HPF (0-5) Urine Squamous Epithelial Cells Few /hpf (<5) Urine Bacteria None seen /hpf (None Seen) Urine Mucus Few (None Seen) Urine Creatinine 122.94 mg/dL (30.0-125.0) Urine Protein/Creatinine Ratio 0.34 Urine Glucose Normal mg/dL (Normal) Urine Total Protein 41.8 mg/dL (1-14) Urine Opiates Screen Neg (NEGATIVE) Urine Fentanyl Screen Neg (NEGATIVE) Urine Barbiturates Screen Neg (NEGATIVE) Urine Phencyclidine Screen Neg (NEGATIVE) Urine Amphetamines Screen Neg (NEGATIVE) Urine Benzodiazepines Screen Neg (NEGATIVE) Urine Cocaine Screen Neg (NEGATIVE) Urine Cannabinoids Screen Neg (NEGATIVE) Other Laboratory Tests 10/18/24 17:29 Brief Hx & Hospital Course: Precipitous labor Consults/Reason for consult Eliminate in its none Operations or Procedures None Condition at Discharge: Good Final Diagnosis/Problems List 35 week labor no complications. Discharge Disposition: Home Discharge Instruct/Medications Diet: Regular Activity: Light activity ( pelvic rest 6 weeks) Discharge Statement: "Patient was advised to return to the ER or call 911 if any headaches, dizziness, shortness of breath, chest pain, abdominal pain, bleeding, fevers, or worsening of medical condition. Patient was counseled about treatment plan, medications, possible side effects, patientverbalized understanding. All questions were answered to the best of my ability. This discharge took greater then 30 minutes in planning, reviewing documentation, counseling the patient, and discussing with other team members." ASSESSMENT ASSESSMENT Assessment Visit Coding OBGYN Date of Service: October 20, 2024 Billing Provider: DELPHINE HERNDON DO PERIANESTHESIA MANAGER Common Visit Codes: 84482-[id number] SAME DATE (HIGH) PERIANESTHESIA MANAGER Procedure Codes: [id number] DEL INCLUDING DELPHINE HERNDON DO October 20, 2024 06:02
[2024-10-20 07:00] VITALS: BP 136/83; PULSE 63; RESP 16; TEMP 98.5; O2SAT 97
[2024-10-20 11:00] VITALS: BP 136/80; PULSE 61; RESP 16; TEMP 98.2; O2SAT 97
[2024-10-20 15:00] VITALS: BP 132/83; PULSE 81; RESP 16; TEMP 98.3; O2SAT 97
[2024-10-20 19:00] VITALS: BP 137/80; PULSE 73; RESP 18; TEMP 98.6; O2SAT 96
== END 2024-10-20 21:08 | disposition home or self-care (01) | DRG 807 ==
LOC: LDRP 16:35 → OBSVTOIN 17:10 → LDRP 19:23
PROVIDERS: ADMIT Obstetrics & Gynecology; ATTEND Obstetrics & Gynecology
PROC: 10E0XZZ Delivery of Products of Conception, External Approach (ICD-10-PCS; principal; 2024-10-18)
PROC: 0HQ9XZZ Repair Perineum Skin, External Approach (ICD-10-PCS; 2024-10-18)
DX: O62.3 Precipitate labor (principal); Z37.0 Single live birth; O70.0 First degree perineal laceration during delivery; Z3A.35 35 weeks gestation of pregnancy; Z79.899 Other long term (current) drug therapy
CPT/HCPCS: 36415; 59409; 80053; 80307; 81001; 82570; 84156; 84550; 85025; 85610; 85730; 86780; 86803; 86850; 86900; 86901; 87070; 94760; 96365; 96366; G0378